=== PATIENT | male | born 1995 | race Caucasian/White ===

== ENCOUNTER 2017-07-23 02:07 | Emergency (ER) | payer SELFPAY ==
[~2017-07-23] VITALS: Ht 172.7 cm; Wt 90.5 kg
[2017-07-23] MEDS ORDERED: ALBUTEROL SULFATE 2.5 MG/0.5 ML NEB SOLUTION NEB ONE (04:30)
[2017-07-23] MEDS ORDERED: BENZONATATE 100 MG CAPSULE PO ONE (05:00)
[2017-07-23 05:17] VITALS: BP 144/80
[2017-07-23] MEDS ORDERED: ALBUTEROL SULFATE HFA 90 MCG/PUFF 8 GM INHALER IH PRN (05:30)
== END 2017-07-23 05:49 | disposition home or self-care (01) ==
LOC: EMS 02:09
DX: J18.9 Pneumonia, unspecified organism (principal); Z88.8 Allergy status to other drugs, medicaments and biological substances
CPT/HCPCS: 71020; 94640; 99284; J7613; J3535